=== PATIENT | female | born 1955 | race Asian ===

== ENCOUNTER 2024-08-13 08:25 | Emergency (ER) | payer OTHER ==
[~2024-08-13] VITALS: Ht 154.9 cm; Wt 85.0 kg
[2024-08-13 08:29] VITALS: O2SAT 99
[2024-08-13] MEDS ORDERED: KETOROLAC 10MG TABLET PO ONE (09:00)
[2024-08-13 09:21] VITALS: BP 166/74
[2024-08-13] MEDS: IBUPROFEN 200MG TABLET PO NR (09:21)
[2024-08-13 09:41] LABS: TROPONIN I HIGH SENSITIVITY 4 ng/L (3.0-34)
[2024-08-13] MEDS ORDERED: IBUP-2029 MT (09:48)
[2024-08-13 10:00] VITALS: PULSE 96; RESP 20; TEMP 37.05852; O2SAT 99
== END 2024-08-13 10:05 | disposition home or self-care (01) ==
LOC: ER 08:25
DX: R07.89 Other chest pain (principal); E11.9 Type 2 diabetes mellitus without complications; I10 Essential (primary) hypertension; V49.59XA Passenger injured in collision with other motor vehicles in traffic accident, initial encounter; Y93.89 Activity, other specified; Y92.89 Other specified places as the place of occurrence of the external cause; Y99.8 Other external cause status
CPT/HCPCS: 36415; 71045; 84484; 93005; 99285